=== PATIENT | male | born 1970 | race Caucasian/White ===

== ENCOUNTER → 2019-08-15 | Outpatient (CLI) | payer BC ==
--- NOTE | 2019-08-16 16:19 | US ---
EXAMINATION TYPE: US scrotum with doppler. Grayscale and color Doppler Duplex imaging performed of t he scrotum. DATE OF EXAM: 08/15/2019 COMPARISON: NONE CLINICAL HISTORY: N50.89 disorder of male genital organs. EXAM MEASUREMENTS: TESTICLES: Right Testicle: 4.3 x 2.3 x 3.2 cm Left Testicle: 4.1 x 2.3 x 2.9 cm EPIDIDYMIS HEAD: Right Epididymis: 0.9 cm Left Epididymis: 0.8 cm Doppler performed to assess for testicular vascularity; good bilateral color flow and waveforms are s een. Presence of hydroceles: no Presence of varicoceles: no Normal homogeneous testicles with satisfactory blood flow and without focal intratesticular mass. Bot h epididymides are within normal limits. No scrotal fluid collection or hydroceles. IMPRESSION: Unremarkable study.
== END | disposition home or self-care (01) ==
LOC: RADUSWWP 14:45
PROVIDERS: ATTEND Family Medicine
DX: N50.89 Other specified disorders of the male genital organs (principal)
CPT/HCPCS: 76870; 93975

== ENCOUNTER → 2019-08-20 | Outpatient (CLI) | payer BC ==
--- NOTE | 2019-08-21 03:18 | MR ---
EXAMINATION TYPE: MR femur/thigh LT wo/w con DATE OF EXAM: 08/20/2019 COMPARISON: HISTORY: Soft Tissue Disorder, swelling above left knee CONTRAST: Standard multiplanar, multisequence MRI departmental protocol utilizing 8.5 mL intravenous Gadavist g adolinium contrast. There is a oval-shaped 6 x 3 cm mass within the vastus medialis muscle of the lower medial left thigh . Mass has high signal on T1 consistent with fat. Contrast images show no pathologic enhancement. Mas s has signal equal to the subcutaneous fat. The femur is intact. I see no bony destructive process. T here is no pathologic fluid collection. There is no evidence of knee joint effusion. IMPRESSION: Oval-shaped mass nonenhancing within the medial aspect of the lower thigh in the vastus medialis musc le has features of benign lipoma.
== END | disposition home or self-care (01) ==
LOC: RADMRIMAIN 10:30
PROVIDERS: ATTEND Family Medicine
DX: R22.42 Localized swelling, mass and lump, left lower limb (principal); M79.89 Other specified soft tissue disorders
CPT/HCPCS: 73720; A9585

== ENCOUNTER → 2021-01-11 | Outpatient (CLI) | payer BC ==
--- NOTE | 2021-01-12 07:20 | US ---
EXAMINATION TYPE: US thyroid st tissue head/neck DATE OF EXAM: 01/11/2021 COMPARISON: NONE CLINICAL HISTORY: E04.1 thyroid nodule. Neck swelling GLAND SIZE: Right Lobe: 4.9 x 1.5 x 2.0 cm Overall Parenchyma: homogenous Left Lobe: 5.6 x 1.8 x 1.6 cm Overall Parenchyma: homogeneous Isthmus Thickness: 0.3 cm NODULES RIGHT: # of nodules measured on right: 0 LEFT: # of nodules measured on left: 0 ISTHMUS: # of nodules measured in the isthmus: 0 Bilateral neck scanned, no evidence of lymphadenopathy. Homogeneous normal-sized thyroid with slight left-sided asymmetry or prominence but no discrete nodul e. IMPRESSION: As above. No concerning nodules noted.
== END | disposition home or self-care (01) ==
LOC: RADUSWWP 17:01
PROVIDERS: ATTEND Family Medicine
DX: R22.1 Localized swelling, mass and lump, neck (principal)
CPT/HCPCS: 76536

== ENCOUNTER → 2024-05-27 | Outpatient (CLI) | payer BC ==
--- NOTE | 2024-05-27 17:45 | US ---
EXAMINATION TYPE: US venous doppler duplex LE LT DATE OF EXAM: 05/27/2024 3:32 PM COMPARISON: NONE CLINICAL INDICATION: Male, 53 years old with history of R22.42 SWELLING MASS LUMP; swelling in calf f or a few months. No hx of DVT. Not on blood thinners TECHNIQUE: The lower extremity deep venous system is examined utilizing real time linear array sonog анна with graded compression, color doppler sonography, and spectral doppler. SIDE PERFORMED: Left FINDINGS: VESSELS IMAGED: Common Femoral Vein Deep Femoral Vein Greater Saphenous Vein * Femoral Vein Popliteal Vein Small Saphenous Vein * Proximal Calf Veins (* superficial vessels) Left Leg: No evidence for DVT IMPRESSION: No ultrasound evidence for deep venous thrombosis. [facility], Workstation: [id number] [id number], 05/27/2024 5:43 PM
== END | disposition home or self-care (01) ==
LOC: RADUSWWP 15:15
PROVIDERS: ATTEND Family Medicine
DX: R22.42 Localized swelling, mass and lump, left lower limb (principal)